=== PATIENT | female | born 1980 | race Caucasian/White ===

== ENCOUNTER 2017-02-25 09:04 | Observation (INO) | payer OTHER ==
[~2017-02-25] VITALS: Ht 164 cm; Wt 103.4 kg
[2017-02-25 09:26] VITALS: BP 122/74
[2017-02-25 12:02] LABS: GLUCOMETER DEV NAME(LOC) 4S 8; GLUCOSE,POINT OF CARE 79 MG/DL (70-110)
[2017-02-25 12:03] LABS: GLUCOMETER DEV NAME(LOC) 4S 8; GLUCOSE,POINT OF CARE 118 MG/DL (70-110)
== END 2017-02-25 12:15 | disposition home or self-care (01) ==
LOC: 4S 09:04
PROVIDERS: ADMIT Obstetrics & Gynecology; ATTEND Obstetrics & Gynecology
DX: O09.523 Supervision of elderly multigravida, third trimester (principal); Z3A.39 39 weeks gestation of pregnancy
CPT/HCPCS: 36415; 59025; 82962; 83036; G0378

== ENCOUNTER 2017-02-27 12:06 | Inpatient (IN) | payer OTHER ==
[~2017-02-27] VITALS: Ht 164 cm; Wt 103.9 kg
[2017-02-27 12:18] VITALS: BP 120/74
[2017-02-27] MEDS ORDERED: PREN1TAB80 PO (12:33)
[2017-02-27] MEDS ORDERED: RINGERS SOLUTION,LACTATED 1,000 ML IV PRN ×2 (13:21→15:56)
[2017-02-27] MEDS ORDERED: RINGERS SOLUTION,LACTATED 1,000 ML IV SCH ×2 (13:21→15:56)
[2017-02-27] MEDS ORDERED: OXYTOCIN 30 UNITS/LACT RINGERS 500 ML IV ONE ×2 (13:21→15:56)
[2017-02-27] MEDS ORDERED: OXYTOCIN 30 UNITS/LACT RINGERS 500 ML IV PRN (13:23)
[2017-02-27] MEDS ORDERED: FentaNYL CITRATE-PF 100 MCG/2 ML VIAL IVP PRN ×2 (13:30→16:00)
[2017-02-27] MEDS ORDERED: LIDOCAINE HCL/PF 1% 30 ML VIAL INJ PRN ×2 (13:30→16:00)
[2017-02-27] MEDS ORDERED: METOCLOPRAMIDE HCL 5 MG/ML 2 ML VIAL IVP PRN ×2 (13:30→16:00)
[2017-02-27] MEDS ORDERED: CITRIC ACID/SODIUM CITRATE 30 ML SOLUTION UDCUP PO PRN ×2 (13:30→16:00)
[2017-02-27] MEDS ORDERED: METHYLERGONOVINE MALEATE 0.2 MG/ML VIAL IM PRN ×2 (13:30→16:00)
[2017-02-27 13:54] LABS: HEMATOCRIT 36.6 % (36-46); MEAN CORPUSCULAR HEMOGLOBIN 28.2 pg (26.0-34.0); MEAN CORPUSCULAR HGB CONC 32.8 G/dL (31.0-37.0); MEAN CORPUSCULAR VOLUME 86 fL (80-100); PLATELET COUNT (AUTO)-OB 273 K/uL (150-450); RED BLOOD CELL COUNT(AUTO) 4.26 MIL/uL (4.00-5.20); RED CELL DISTRIBUTION WIDTH 14.7 % (11.5-14.5)
[2017-02-27 14:26] LABS: BAND NEUTROPHILS % (MANUAL) 8 % (1-5); LYMPHOCYTES % (MANUAL) 11 % (22-44); MONOCYTES % (MANUAL) 8 % (2-9); SEGMENTED NEUTROPHILS % 73 % (40-70)
[2017-02-27] MEDS: SODIUM CHLORIDE 0.65% 44 ML NASAL SPRAY NASAL PRN ×2 (16:08→21:16)
[2017-02-27] MEDS ORDERED: LIDOCAINE HCL/PF 2% 5 ML VIAL ONE (16:53)
[2017-02-27] MEDS ORDERED: FentaNYL/BUPIV 0.125%/NS/PF 200 ML ED ONE (16:54)
[2017-02-27] MEDS ORDERED: FentaNYL/BUPIV 0.125%/NS/PF 200 ML ED PRN (17:37)
[2017-02-27] MEDS ORDERED: PROMETHAZINE HCL 12.5 MG in SODIUM CHLORIDE 0.9% 50 ML IV PRN (17:45)
[2017-02-27] MEDS ORDERED: DiphenhydrAMINE HCL 50 MG/ML VIAL IVP PRN (17:45)
[2017-02-27] MEDS ORDERED: ONDANSETRON HCL 4 MG/2 ML VIAL IVP PRN (17:45)
[2017-02-27] MEDS ORDERED: INFLUENZA VIRUS VACCINE QVS 2017-18 (3YR+)/PF 60 MCG/0.5 ML SYRINGE IM ONE (17:45)
[2017-02-27] MEDS ORDERED: NALBUPHINE HCL 10 MG/ML VIAL IVP PRN (17:45)
[2017-02-27] MEDS ORDERED: RINGERS SOLUTION,LACTATED 1,000 ML IV ONE (19:35)
[2017-02-27] MEDS ORDERED: MEASLES/MUMPS/RUBELLA VACCINE, LIVE 0.5 ML/VIAL SQ ONE (19:45)
[2017-02-27] MEDS ORDERED: GLYCERIN/WITCH HAZEL LEAF 40 PADS JAR TP PRN (19:45)
[2017-02-27] MEDS ORDERED: LANOLIN 7 GM OINTMENT TP PRN (19:45)
[2017-02-27] MEDS ORDERED: OxyCODONE HCL/ACETAMINOPHEN 5-325 MG TABLET PO PRN (19:45)
[2017-02-27] MEDS ORDERED: BENZOCAINE 20%/MENTHOL 56 GM SPRAY CANISTER TP PRN (19:45)
[2017-02-27] MEDS ORDERED: OXYGEN THERAPY IH SCH ×2 (20:00)
[2017-02-27] MEDS ORDERED: MAGNESIUM HYDROXIDE SUSPENSION 30 ML UDCUP PO SCH (21:00)
[2017-02-28] MEDS: OxyCODONE HCL/ACETAMINOPHEN 5-325 MG TABLET PO PRN ×2 (00:36→17:15)
[2017-02-28] MEDS: IBUPROFEN 600 MG TABLET PO PRN ×2 (00:36→17:15)
== END 2017-02-28 20:00 | disposition home or self-care (01) | DRG 775 ==
LOC: OBSVTOIN 12:06 → INTOOBSV 12:06 → 4S 12:06
PROVIDERS: ADMIT Obstetrics & Gynecology; ATTEND Obstetrics & Gynecology
PROC: 0HQ9XZZ Repair Perineum Skin, External Approach (ICD-10-PCS; principal; 2017-02-27)
PROC: 10E0XZZ Delivery of Products of Conception, External Approach (ICD-10-PCS; 2017-02-27)
PROC: 3E0R3BZ Introduction of Anesthetic Agent into Spinal Canal, Percutaneous Approach (ICD-10-PCS; 2017-02-27)
PROC: 00HU33Z Insertion of Infusion Device into Spinal Canal, Percutaneous Approach (ICD-10-PCS; 2017-02-27)
PROC: 3E0134Z Introduction of Serum, Toxoid and Vaccine into Subcutaneous Tissue, Percutaneous Approach (ICD-10-PCS; 2017-02-27)
DX: O76 Abnormality in fetal heart rate and rhythm complicating labor and delivery (principal); O69.81X0 Labor and delivery complicated by cord around neck, without compression, not applicable or unspecified; O70.0 First degree perineal laceration during delivery; Z3A.39 39 weeks gestation of pregnancy; Z23 Encounter for immunization; Z37.0 Single live birth
CPT/HCPCS: 86850; 86870; 86900; 86901; J2405; J2590; J3490; J7120